=== PATIENT | male | born 1990 | race Caucasian/White ===

== ENCOUNTER 2024-08-02 23:59 | Emergency (ER) | payer SELFPAY ==
[~2024-08-02] VITALS: Ht 180.3 cm; Wt 89.0 kg
[2024-08-03 00:08] VITALS: TEMP 98; O2SAT 96
[2024-08-03] MEDS ORDERED: IBUPROFEN 600MG TABLET PO ONE (00:45)
[2024-08-03] MEDS ORDERED: BO1 TP (00:48)
[2024-08-03] MEDS ORDERED: SULF1TAB48 MT (00:48)
[2024-08-03 01:59] VITALS: BP 131/74; PULSE 73; RESP 15; O2SAT 98
== END 2024-08-03 02:02 | disposition home or self-care (01) ==
LOC: ER 23:59
DX: S61.302A Unspecified open wound of right middle finger with damage to nail, initial encounter (principal); Z88.0 Allergy status to penicillin; W27.4XXA Contact with kitchen utensil, initial encounter; Y93.89 Activity, other specified; Y92.89 Other specified places as the place of occurrence of the external cause; Y99.8 Other external cause status
CPT/HCPCS: 99283; 73140; Z7610